=== PATIENT | female | born 1980 | race Caucasian/White ===

== ENCOUNTER 2019-02-23 19:22 | Emergency (ER) | payer MEDICAID ==
[~2019-02-23] VITALS: Ht 170.2 cm; Wt 104.1 kg
[2019-02-23 19:24] VITALS: BP 148/91
[2019-02-23] MEDS ORDERED: OXYcodone/APAP 5/325MG TABLET ONE (19:45)
[2019-02-23] MEDS ORDERED: OXYcodone/APAP 5/325MG TABLET PO ONE (20:00)
== END 2019-02-23 20:03 | disposition home or self-care (01) ==
LOC: ED 19:45
DX: K02.9 Dental caries, unspecified (principal); Z87.891 Personal history of nicotine dependence
CPT/HCPCS: 99283

== ENCOUNTER 2019-02-25 14:55 | Emergency (ER) | payer MEDICAID ==
[~2019-02-25] VITALS: Ht 170.2 cm; Wt 104.9 kg
--- NOTE | 2019-02-25 16:06 | NUR ---
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
--- NOTE | 2019-02-25 16:20 | NUR ---
PT WITH C/O "ABCESS". PT STATES SHE CAME HERE FRIDAY THIS WEEK FOR TOOTH PAIN D/T A CRACKED TOOTH. PT WAS GIVEN ABX AND TOLD TO F/U WITH DENTIST. PT STATES SHE WENT TO THE DENTIST TODAY AND WAS TOLD THAT SHE NEEDED TO HAVE HER ABCESS DRAINED
[2019-02-25] MEDS ORDERED: MORPHINE SULFATE 4 MG/ML, 1ML IVPush PRN (17:00)
[2019-02-25] MEDS ORDERED: ONDANSETRON 2MG/ML, 2ML IVPush ONE (17:00)
[2019-02-25] MEDS ORDERED: SODIUM CHLORIDE FLUSH 10ML SYR IVF ONE (17:00)
[2019-02-25 17:15] LABS: BASOPHILS # (AUTO) 0.04 x10^3/uL (0-0.1); BASOPHILS % (AUTO) 1 % (0-1); EOSINOPHILS # (AUTO) 0.14 x10^3/uL (0-0.4); EOSINOPHILS % (AUTO) 2 % (1-7); LYMPHOCYTES # (AUTO) 1.28 x10^3/uL (1-3.4); LYMPHOCYTES % (AUTO) 18 % (22-44); MD NO; MEAN CORPUSCULAR HEMOGLOBIN 24.8 pg (27.0-34.8); MEAN CORPUSCULAR HGB CONC 31.5 g/dL (32.4-35.8); MEAN CORPUSCULAR VOLUME 78.8 fL (80-100); MEAN PLATELET VOLUME 8.7 fL (7.4-10.4); MONOCYTES % (AUTO) 10 % (2-9); NEUTROPHILS # (AUTO) 4.92 x10^3/uL (1.8-6.8); NEUTROPHILS % (AUTO) 70 % (42-75); PLATELET COUNT 337 x10^3/uL (130-400); RED CELL DISTRIBUTION WIDTH 18.8 % (9.6-15.2)
[2019-02-25] MEDS ORDERED: ONDANSETRON 2MG/ML, 2ML ONE (17:19)
[2019-02-25] MEDS ORDERED: MORPHINE SULFATE 4 MG/ML, 1ML ONE (17:20)
[2019-02-25 17:24] LABS: ALBUMIN 3.2 g/dL (3.4-5.0); ANION GAP 8 mmol/L (5-15); CHLORIDE 108 mmol/L (98-107)
--- NOTE | 2019-02-25 17:27 | NUR ---
PIV INITIATED, PT MEDICATED PER MAR, NAD NOTED
[2019-02-25 17:30] LABS: ALANINE AMINOTRANSFERASE 26 U/L (12-78); ALKALINE PHOSPHATASE 86 U/L (45-117); BILIRUBIN,TOTAL 0.3 mg/dL (0.2-1.0); CREATININE 0.77 mg/dL (0.55-1.02); TOTAL PROTEIN 7.6 g/dL (6.4-8.2)
[2019-02-25] MEDS ORDERED: OMNIPAQUE 350 MG/ML, 75ML BOTTLE ONE (18:09)
[2019-02-25 18:34] VITALS: BP 138/71
--- NOTE | 2019-02-25 18:34 | NUR ---
PT RESTING ON FLY, NAD NOTED, PT PLACED FOR RECHECK
== END 2019-02-25 19:04 | disposition home or self-care (01) ==
LOC: ED 18:27
DX: K02.9 Dental caries, unspecified (principal)
CPT/HCPCS: 36415; 70487; 80053; 85025; 96374; 96375; 99284; J2270; J2405; Q9967

== ENCOUNTER 2019-03-27 15:21 | Emergency (ER) | payer MEDICAID ==
[~2019-03-27] VITALS: Ht 170.2 cm; Wt 107.7 kg
--- NOTE | 2019-03-27 15:40 | NUR ---
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
[2019-03-27] MEDS ORDERED: ACETAMINOPHEN 500 MG TABLET PO ONE (16:00)
[2019-03-27] MEDS ORDERED: ACETAMINOPHEN 500 MG TABLET ONE (16:06)
--- NOTE | 2019-03-27 16:09 | NUR ---
PT CURRENTLY IN .
--- NOTE | 2019-03-27 16:29 | NUR ---
PT BACK FROM [facility]. PT STATES SHE HAS BEEN BLEEDING HEAVILY X 14 DAYS. STATES SHE HAD A TUBAL LIGATION 13 YRS AGO. SAYS SHE HAD HER NORMAL CYCLE THEN BEGAN BLEEDING SHORTLY AFTER AND HAS NOT STOPPED. PT STATES SHE HAS BEEN GOING THROUGH [facility] 5-6 OVERNIGHT PADS DURING THE DAY. PT RESTING ON FLY. NADN. MONITORS APPLIED. WARM BLANKET PROVIDED.
--- NOTE | 2019-03-27 16:43 | NUR ---
PT RESTING ON GURNEY. NADN. CHIN.
[2019-03-27 16:48] LABS: INTERNATIONAL NORMALIZED RATIO 0.95 (0.93-1.1)
[2019-03-27 16:50] LABS: MICROSCOPIC NOT IND
[2019-03-27 16:50] LABS: ALANINE AMINOTRANSFERASE 25 U/L (12-78); ALBUMIN 3.4 g/dL (3.4-5.0); ANION GAP 4 mmol/L (5-15); CALCIUM 8.8 mg/dL (8.5-10.1); CHLORIDE 109 mmol/L (98-107); CREATININE 0.81 mg/dL (0.55-1.02)
[2019-03-27 16:52] LABS: ALKALINE PHOSPHATASE 81 U/L (45-117); BILIRUBIN,TOTAL 0.3 mg/dL (0.2-1.0)
[2019-03-27 17:01] LABS: CULTURE INDICATED? NO
[2019-03-27 17:10] LABS: BASOPHILS % (AUTO) 0 % (0-1); EOSINOPHILS # (AUTO) 0.12 x10^3/uL (0-0.4); EOSINOPHILS % (AUTO) 3 % (1-7); LYMPHOCYTES # (AUTO) 1.53 x10^3/uL (1-3.4); LYMPHOCYTES % (AUTO) 31 % (22-44); MD NO; MEAN CORPUSCULAR HEMOGLOBIN 23.9 pg (27.0-34.8); MEAN CORPUSCULAR HGB CONC 31.2 g/dL (32.4-35.8); MEAN CORPUSCULAR VOLUME 76.6 fL (80-100); MEAN PLATELET VOLUME 9.5 fL (7.4-10.4); MONOCYTES # (AUTO) 0.44 x10^3/uL (0.2-0.8); MONOCYTES % (AUTO) 9 % (2-9); NEUTROPHILS % (AUTO) 57 % (42-75); PLATELET COUNT 312 x10^3/uL (130-400); RED BLOOD COUNT 4.07 x10^6/uL (3.82-5.3); RED CELL DISTRIBUTION WIDTH 18.3 % (9.6-15.2)
[2019-03-27 17:29] VITALS: BP 161/86
--- NOTE | 2019-03-27 17:30 | NUR ---
PT RESTING ON FLY. VSS. PER DR. PEDERSON NO NEED FOR PELVIC EXAM.
[2019-03-27 17:45] LABS: HCG UR SG 1.006 (1.003-1.030)
[2019-03-27] MEDS ORDERED: NEO/POLYMYX B/DEXA OPHTH OINT, 3.5GM RIGHTEYE ONE (18:00)
== END 2019-03-27 17:54 | disposition home or self-care (01) ==
LOC: ED 16:39
DX: N93.8 Other specified abnormal uterine and vaginal bleeding (principal); R10.30 Lower abdominal pain, unspecified
CPT/HCPCS: 36415; 76830; 80053; 81003; 81025; 85025; 85610; 99284

== ENCOUNTER 2019-08-22 07:00 | Emergency (ER) | payer MEDICAID ==
[~2019-08-22] VITALS: Ht 170.2 cm; Wt 108.8 kg
--- NOTE | 2019-08-22 07:10 | NUR ---
PT AMBULATORY TO TRIAGE, EKG DONE FOR HR OF 130S.
[2019-08-22] MEDS ORDERED: HYDROcodone/APAP 5/325 TABLET PO ONE (07:30)
[2019-08-22] MEDS ORDERED: CLINDAMYCIN 150 MG CAPSULE PO ONE (07:30)
--- NOTE | 2019-08-22 07:40 | NUR ---
FIRST CONTACT WITH PT. PT C/O PINK EYE AND SINUE PROBLEMS STARTED 3 DAYS AGO. NOW HAS ABCESS TOOTH, R SIDE. PT'S AOX4. RESPS EVEN AND UNLABORED. NOVISION CHANGE PER PT. BP/SPO2 MONITORS IN PLACE. CALL LIGHT WITHIN REACH.
[2019-08-22] MEDS ORDERED: HYDROcodone/APAP 5/325 TABLET ONE (07:41)
[2019-08-22 07:46] VITALS: BP 156/111
--- NOTE | 2019-08-22 07:48 | NUR ---
PT MEDICATED PER EMAR. PT TOLERATED WELL.
--- NOTE | 2019-08-22 08:14 | NUR ---
Patient given discharge instructions and they have confirmed that they understand the instructions. Patient ambulatory with steady gait.
== END 2019-08-22 08:15 | disposition home or self-care (01) ==
LOC: ED 07:27
DX: K04.7 Periapical abscess without sinus (principal); H10.33 Unspecified acute conjunctivitis, bilateral; R00.0 Tachycardia, unspecified; F17.200 Nicotine dependence, unspecified, uncomplicated
CPT/HCPCS: 93005; 99283

== ENCOUNTER 2019-08-23 01:34 | Emergency (ER) | payer MEDICAID ==
[~2019-08-23] VITALS: Ht 170.2 cm; Wt 109.2 kg
[2019-08-23 01:35] VITALS: BP 127/81
[2019-08-23] MEDS ORDERED: LIDOCAINE 2% VISCOUS 15 ML UDC MM STA (01:51)
[2019-08-23] MEDS ORDERED: LIDOCAINE 2% VISCOUS 15 ML UDC ONE (01:54)
[2019-08-23] MEDS ORDERED: LIDOCAINE-MPF 1%, 5ML ONE (01:54)
[2019-08-23] MEDS ORDERED: KETOROLAC 30 MG/1 ML ONE (01:54)
[2019-08-23] MEDS ORDERED: KETOROLAC 30 MG/1 ML IM ONE (02:00)
[2019-08-23] MEDS ORDERED: LIDOCAINE-MPF 1%, 5ML INFIL ONE (02:00)
== END 2019-08-23 02:20 | disposition home or self-care (01) ==
LOC: ED 01:52
DX: K04.7 Periapical abscess without sinus (principal); Z98.51 Tubal ligation status
CPT/HCPCS: 41800; 96372; 99284; J1885; 64400

== ENCOUNTER 2020-01-17 23:24 | Emergency (ER) | payer MEDICAID ==
[~2020-01-17] VITALS: Ht 170.2 cm; Wt 109.8 kg
[2020-01-17] MEDS ORDERED: FLUORESCEIN OPHTHALMIC 1 MG STRIP ONE (23:49)
[2020-01-18] MEDS ORDERED: KETOROLAC 30 MG/1 ML IVPush ONE
[2020-01-18] MEDS ORDERED: METOCLOPRAMIDE 5 MG/ML, 2ML IVPush ONE
[2020-01-18] MEDS ORDERED: DIPHENHYDRAMINE 50 MG/ML, 1ML IVPush ONE
[2020-01-18] MEDS ORDERED: DIPHENHYDRAMINE 50 MG/ML, 1ML ONE (00:08)
[2020-01-18] MEDS ORDERED: METOCLOPRAMIDE 5 MG/ML, 2ML ONE (00:08)
[2020-01-18] MEDS ORDERED: KETOROLAC 30 MG/1 ML ONE (00:08)
--- NOTE | 2020-01-18 00:21 | NUR ---
PT REPORTS A LAUREN X 3 DAYS. SENSITIVITY TO LIGHT AND BLURRED VISION, DENIES ANY N/V. PT REPORTS A HX OF MIGRAINES. DENIES ANY RECENT TRAUMA/FALLS, DENIES TAKING ANY ANTICOAGULANTS. CAOX4. VITALS STABLE.
--- NOTE | 2020-01-18 00:25 | NUR ---
IV ESTABLISHED. PT MEDICATED PER EMAR. 5 RIGHTS ADDRESSED.
--- NOTE | 2020-01-18 01:10 | NUR ---
assumed care of pt. report from Isabel JACOBSON. pt here for LAUREN and visual changes. pt has been medicated and now denies pain. resting in position of comfort wiht lights off. no apparent distress. SO at bedside. chart up for MD recheck. pt updated on POC
--- NOTE | 2020-01-18 01:31 | NUR ---
repeat VA have been completed by tech. pt to be D/C
[2020-01-18 01:40] VITALS: BP 116/68
== END 2020-01-18 01:45 | disposition home or self-care (01) ==
LOC: ED 01-18 01:27
DX: G43.909 Migraine, unspecified, not intractable, without status migrainosus (principal); F17.200 Nicotine dependence, unspecified, uncomplicated; Z98.51 Tubal ligation status
CPT/HCPCS: 96374; 96375; 99284; J1200; J1885; J2765